=== PATIENT | female | born 1980 | race Caucasian/White ===

== ENCOUNTER → 2024-05-13 09:29 | Outpatient (CLI) | payer OTHER, SELFPAY ==
--- NOTE | 2024-05-13 09:33 | DI.MG.S_ITS ---
UNILATERAL LEFT DIGITAL DIAGNOSTIC MAMMOGRAM 3D/2D WITH ADDITIONAL VIEWS: 05/13/2024 CLINICAL: Additional evaluation requested from prior study. Comparison is made to exam dated: 04/09/2024 mammogram - outside location. The left breast is heterogeneously dense, which may obscure small masses (category c / 51-75% glandular tissue). There are 0.3 cm grouped amorphous and punctate calcifications in the left breast at 1 o'clock posterior depth. This corresponds to finding seen on recent outside baseline screening mammogram. No other significant masses or calcifications are seen in the breast. IMPRESSION: PROBABLY BENIGN Left breast 0.3 cm grouped amorphous and punctate calcifications at 1 o'clock posterior depth, initially seen on baseline screening mammogram. Finding is probably benign. A follow-up mammogram in 6 months is recommended to demonstrate stability. Findings and recommendations were conveyed to the patient during today's evaluation. Based on the Tyrer Cuzick model (a risk assessment model) the patient's lifetime risk is 17.8% and her 10 year risk is 3.2%. According to the ACR, ACS, and NCCN guidelines, an annual breast MRI exam along with mammogram is recommended if the patient's lifetime risk is 20% or greater. This exam was interpreted at Station ID: [id number]. NOTE: For mammograms, a report in lay terms will be sent to the patient. Approximately 15% of breast malignancies will not be visualized mammographically. In the management of a palpable breast mass, a negative mammogram must not discourage biopsy of a clinically suspicious lesion. Electronically Signed By: Fadia Isbell M.D., Ph.D. eb/:05/13/2024 11:18:30 letter sent: Followup Recommended ACR BI-RADS Category 3: Probably benign 3343F
== END ==
PROVIDERS: PCP Nurse Practitioner Family; Referring Provider Nurse Practitioner Family; Visit Provider Nurse Practitioner Family
DX: R92.1 Mammographic calcification found on diagnostic imaging of breast (principal); R92.333 Mammographic heterogeneous density, bilateral breasts
CPT/HCPCS: 77065; G0279

== ENCOUNTER → 2025-03-24 10:18 | Outpatient (CLI) | payer OTHER, SELFPAY ==
--- NOTE | 2025-03-24 10:22 | DI.MG.S_ITS ---
MM diagnostic mammo unilat LT: 03/24/2025. BI-RADS: 3 CLINICAL: 44-year old female for diagnostic mammogram. Tyrer-Cuzick lifetime risk of 18.1%. No personal or first-degree family history of breast cancer. Current reported family history of breast cancer: paternal aunt. PRIOR EXAMS 05/13/2024, 04/09/2024. MAMMOGRAPHY TECHNIQUE: 2D and 3D (tomosynthesis) digital mammographic views obtained, with additional images as needed for full coverage. Current study was also evaluated with a Computer Aided Detection (CAD) system. DENSITY Left: C. The breasts are heterogeneously dense, which may obscure small masses. MAMMOGRAPHY FINDINGS Left: Upper Outer at 1:00, Posterior depth, measuring 0.4cm: There are probably-benign round calcifications that are unchanged in size and appearance. IMPRESSION: Left (Calcification): Upper Outer at 1:00, Posterior depth, measuring 0.4cm * Probably Benign. RECOMMENDATIONS: Due for right breast mammogram. Right * Annual screening mammography. Bilateral * Followup with diagnostic mammography in one year to demonstrate 2 year stability. OVERALL ASSESSMENT CATEGORY BI-RADS-3: Probably Benign. ELECTRONICALLY SIGNED: Jaden Seay M.D. on 03/26/2025 at 04:27:52 PM PT Interpreting Station ID: [id number]
== END ==
LOC: MAMMO 10:20
PROVIDERS: PCP Nurse Practitioner Family; Referring Provider Nurse Practitioner Family; Visit Provider Nurse Practitioner Family
DX: R92.1 Mammographic calcification found on diagnostic imaging of breast (principal); R92.332 Mammographic heterogeneous density, left breast; Z80.3 Family history of malignant neoplasm of breast
CPT/HCPCS: 77065; G0279

== ENCOUNTER → 2025-07-20 08:00 | Outpatient (CLI) | payer OTHER, SELFPAY ==
--- NOTE | 2025-07-20 08:02 | DI.MRI.S_ITS ---
PROCEDURE: MR KNEE RT WO CON INDICATIONS: RT KNEE PAIN TECHNIQUE: Noncontrast sagittal PD fast spin echo and T2 fast spin echo with fat saturation, sagittal 3-D FLASH with fat saturation; coronal T1 spin echo and PD fast spin echo with fat saturation, and axial PD fast spin echo with fat saturation through the knee. COMPARISON: None. FINDINGS: Image quality: Excellent. Menisci: Peripheral displacement of medial meniscus bowing medial collateral ligament. Complex tear involving anterior horn, body and posterior horn of medial meniscus is seen extending to both superior and inferior articulating surfaces with a bucket- handle component involving body and posterior horn of medial meniscus and centrally displaced torn medial meniscal fragment anterior to the PCL. The lateral meniscus is intact. Cruciate ligaments: Nonvisualization of normal intact ACL concerning for chronic ACL rupture. The PCL is intact. Medial structures: The medial collateral ligament appears thickened with surrounding edema. Visualized portions of the pes anserinus tendons appear normal. No abnormal bursal fluid. Lateral structures: The lateral collateral ligament is thickened with intrasubstance T2 hyperintense signal at its femoral insertion. The long and short heads of the biceps femoris tendon appear intact. The popliteus tendon appears intact. Iliotibial band appears normal. Anterior structures: Distal quadriceps tendinosis at its superior patellar insertion. The patellar tendon is intact. Patellar alignment is normal. Bones and cartilage: Arzc-fk-powolmru tricompartmental osteoarthritis and chondromalacia more notably in medial and lateral femoral tibial compartments. Marrow edema is seen involving lateral aspect of proximal tibia extending to base of tibial spine. Marrow edema is also noted involving weight-bearing portion of medial femoral condyle and medial tibial plateau. No acute fracture or dislocation. Joint space: There is moderate knee joint fluid. There is a tiny Guan's cyst. Normal appearing synovial plicae are incidentally noted. IMPRESSION: 1. Nonvisualization of normal intact ACL suggestive of chronic ACL rupture. The PCL is intact. 2. Complex tear involving the length of medial meniscus extending to both superior and inferior articulating surfaces with at least a bucket-handle component involving body and posterior horn of medial meniscus with centrally displaced torn medial meniscal fragment. No evidence of lateral meniscal tear. 3. Low-grade MCL sprain/partial-thickness tear. Low-grade partial-thickness tear involving proximal lateral collateral ligament. 4. Distal quadriceps tendinosis. 5. Gguc-du-zghzvyyz tricompartmental osteoarthritis and chondromalacia as above. No fracture or dislocation. Moderate joint effusion and a tiny Guan's cyst. No loose bodies. Dictated by: Ankush Yap M.D. on 07/20/2025 at 11:57 Approved by: Ankush Yap M.D. on 07/20/2025 at 12:02
== END ==
LOC: MRI 08:01
PROVIDERS: PCP Physician Assistant; Referring Provider Physician Assistant; Visit Provider Nurse Practitioner Family
DX: S83.231A Complex tear of medial meniscus, current injury, right knee, initial encounter (principal); S83.421A Sprain of lateral collateral ligament of right knee, initial encounter; M17.11 Unilateral primary osteoarthritis, right knee; M94.261 Chondromalacia, right knee; M25.461 Effusion, right knee
CPT/HCPCS: 73721